=== PATIENT | male | born 1935 | race Two or more races ===

== ENCOUNTER → 2023-07-09 | Outpatient (CLI) | payer MEDICARE, BC ==
--- NOTE | 2023-07-09 11:43 | XR ---
EXAMINATION TYPE: XR abdomen 1V DATE OF EXAM: 07/09/2023 COMPARISON: NONE HISTORY: Pain TECHNIQUE: One view abdominal series FINDINGS: The osseous structures are intact. The bowel gas pattern is nonspecific. 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 Bilateral hip arthropathy. Extensive retained fecal debris throughout the colon correlate for constipation. IMPRESSION: 1. Nonspecific abdomen with findings suggestive of severe constipation.
== END | disposition home or self-care (01) ==
LOC: RADXRMAIN 11:14
PROVIDERS: ATTEND Family Medicine
DX: K59.00 Constipation, unspecified (principal); R10.11 Right upper quadrant pain
CPT/HCPCS: 74018

== ENCOUNTER → 2024-03-10 | Outpatient (CLI) | payer MEDICARE ==
--- NOTE | 2024-03-10 13:47 | CT ---
EXAMINATION TYPE: CT iac wo con CT DLP: 142.70 mGycm, Automated exposure control for dose reduction was used. 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 COMPARISON: None. TECHNIQUE: Multiple thin axial images were obtained through the temporal bones and internal auditory canals. Additional coronal reformatted images were obtained. No IV contrast was utilized. FINDINGS: Right Temporal Bone: Complete opacification of the middle ear. There is some thickening of the skin within the external au ditory canal. The tympanic membrane is not visualized and completely opacified in this region. Prussa k's space is completely opacified however the scutum does appear intact. No definitive osseous erosio ns. Complete opacification of the mastoid air cells. Tegmen tympani appears intact. The internal auditory canal is unremarkable. Left Temporal Bone: External Ear: The external auditory canal is unremarkable, The tympanic membrane is present and unrem arkable. Middle Ear: The ossicles demonstrate a normal appearance. Prussak's space is clear and the scutum i s intact. There is no evidence of osseous erosion and the tegmen tympani is intact. Inner Ear: Cochlea, vestibule and semi circular canals are unremarkable. No evidence of carotid umang l dehiscence. Two and a half turns of the cochlea are identified. The vestibular aqueduct is not enl arged. Mastoid Air Cells: Minimal opacification inferior mastoid air cells. The tegmen mastoideum is intact. The aditus ad antrum is clear. Internal Auditory Canal: The internal auditory canal is unremarkable. Mild mucosal thickening of the left ethmoid sinus. Complete opacification of the visualized right max illary sinus with hypertrophic wall thickening. IMPRESSION: 1. Complete opacification of the right middle ear including complete opacification of the right mast oid air cells. The scutum appears intact. Findings are still concerning for cholesteatoma. 2. Trace left mastoid effusion otherwise normal left internal auditory canal appearance. 3. Chronic right maxillary sinusitis changes. [facility], , 03/10/2024 1:45 PM
== END | disposition home or self-care (01) ==
LOC: RADCTMAIN 12:24
PROVIDERS: ATTEND Otolaryngology
DX: H71.11 Cholesteatoma of tympanum, right ear (principal); J32.0 Chronic maxillary sinusitis
CPT/HCPCS: 70480